=== PATIENT | female | born 1990 | race Caucasian/White ===

== ENCOUNTER 2016-09-14 19:03 | Inpatient (IN) | payer OTHER ==
[~2016-09-14] VITALS: Ht 160 cm; Wt 98.8 kg
[~2016-09-14 19:03] MED LIST: ABILIFY10 MG PO; ABILIFY5 MG PO; ADDERALL XR 1515 MG PO; ADDERALL XR 2020 MG PO; ADDERALL XR 2525 MG PO; ADDERALL XR 3030 MG PO; ADDERALL20 MG PO; ALBUTEROL SULF8.5 GM IH; ALPRAZOLAM0.25 MG PO; AMOXICILLIN500 MG PO; ANTIVERT25 MG PO; ARIPIPRAZOLE10 MG PO; ATARAX,VISTARIL50 MG PO; ATIVAN0.5 MG PO; ATIVAN1 MG PO; AZITHROMYCIN250 MG PD; BACTRIM,SEPT1 TABLET PO; BENADRYL25 MG PO; BENADRYL50 MG PO; BIOTIN5 MG PO; CIPRO500 MG PO; CLONAZEPAM0.5 MG PO; DOXYCYCLINE HY100 MG PO; DULOXETINE HCL30 MG PO; Dilaudid PO; EFFEXOR XR150 MG PO; EFFEXOR XR75 MG PO; EFFEXOR50 MG PO; ENDOCET 5-3251 EACH PO; EXCEDRIN EXTRA1 EACH PO; FIORICET,ESG1 TABLET PO; FLAGYL500 MG PO; FLONASE16 G1 BOTH NARES; FLUOXETINE HCL20 MG PO; FLUOXETINE HCL40 MG PO; GUANFACINE HCL1 MG PO; HYDROCODON-ACE1 EAC7 PO; HYDROCODON-ACE1 EAC8 PO; IBUPROFEN600 MG PO; IBUPROFEN800 MG PO; IRON325 M1 PO; IRON325 MG PO; KEFLEX500 MG PO; KLONOPIN0.5 M1 PO; LATUDA60 MG PO; LEVO-T112 MCG PO; LEVOTHROID25 MCG PO; LEVOTHYROXINE100 MCG PO; LEVOTHYROXINE125 MCG PO; LEVOTHYROXINE50 MCG PO; LEVOXYL100 MCG PO; LEVOXYL112 MCG PO; LEXAPRO10 MG PO; LODINE300 MG PO; LORAZEPAM0.5 MG PO; MEDICATI TP; MELATONIN5 M1 PO; MOTRIN800 MG PO; MUCUS RELIEF600 M1 PO; NAPROSYN500 MG PO; NASALCROM NASAL13 ML BOTH NARES; NORCO 5/3251 TABLET PO; PEPCID20 MG PO; PHENERGAN-CODE120 ML PO; PREDNISONE10 M1 PO; PREDNISONE20 MG PO; PREDNISONE50 MG PO; PRENATAL TABLE1 EAC3 PO; PRENATAL1 EACH PO; PROVENTIL,2.5 MG/3 M IH; PROZAC20 MG PO; PROZAC40 MG PO; PYRIDIUM100 MG PO; ROBITUSSIN DM118 ML PO; RYBIX ODT50 MG PO; SUDAFED 12-HOU120 MG PO; SYNTHROID112 MCG PO; SYNTHROID50 MCG PO; TEGRETOL-XR,CA100 MG PO; TESSALON PERLE100 MG PO; TRAMADOL HCL50 MG; TRIPLE ANTIB28.35 GM TP; TUMS500 MG PO; TYLENOL REGULA325 MG PO; TYLENOL WITH C1 EACH PO; VENLAFAXINE HC150 M1; VENLAFAXINE HCL75 M3 PO; ZANTAC150 MG PO; ZANTAC75 M1 PO; ZOFRAN ODT4 MG PO; ZOFRAN4 MG PO; ZYRTEC10 M2 PO
[2016-09-14 19:28] VITALS: BP 128/75
[2016-09-14] MEDS ORDERED: GLYBURIDE1.25 MG PO (20:13)
[2016-09-14 20:21] VITALS: BP 125/63
[2016-09-14] MEDS ORDERED: MOTRIN800 MG PO (20:32)
[2016-09-14] MEDS ORDERED: PERCOCET 5/31 TABLET PO (20:32)
[2016-09-14 20:33] LABS: HEMATOCRIT 33.1 % (36.0-46.0); MCH 30.7 PG (29.0-34.0); MCHC 33.2 G/DL (30.0-36.0); MCV 92.5 FL (83-99); MEAN PLAT.VOLUME 9.3 uM^3 (9.5-12.4); PLATELET COUNT 207 K/uL (156-360); RBC DIS.WIDTH-CV 17.5 % (11.8-14.6); RBC DIS.WIDTH-SD 59.5 % (39-53); RED BLOOD COUNT 3.58 M/uL (3.80-5.20); WHITE BLOOD COUNT 8.9 K/uL (4.1-10.2)
[2016-09-14 20:37] LABS: EOSINOPHIL (%) 1.6 % (0-5); EOSINOPHIL COUNT 0.1 K/uL (0-0.3); IMMATURE GRANULOCYTE COUNT 0.1 K/uL; LYMPHOCYTE COUNT 2.2 K/uL (1.0-2.8); MONOCYTE (%) 6.8 % (3-12); MONOCYTE COUNT 0.6 K/uL (0-0.8); NEUTROPHIL (%) 65.5 % (45-76); NEUTROPHIL COUNT 5.8 K/uL (1.8-6.4)
[2016-09-14 21:06] LABS: POINT-OF-CARE METER ID UU13113692
[2016-09-14 23:44] VITALS: BP 139/74
[2016-09-15] VITALS (8 sets, daily range): BP systolic 97–131; BP diastolic 53–68
[2016-09-15 08:19] LABS: EOSINOPHIL (%) 0.2 % (0-5); HEMATOCRIT 29.4 % (36.0-46.0); IMMATURE GRANULOCYTE (%) 0.6 % (0.0-0.7); IMMATURE GRANULOCYTE COUNT 0.1 K/uL; LYMPHOCYTE COUNT 2.2 K/uL (1.0-2.8); MCH 29.9 PG (29.0-34.0); MCV 90.7 FL (83-99); MEAN PLAT.VOLUME 9.3 uM^3 (9.5-12.4); MONOCYTE (%) 7.1 % (3-12); MONOCYTE COUNT 0.9 K/uL (0-0.8); NEUTROPHIL (%) 74.8 % (45-76); NEUTROPHIL COUNT 9.5 K/uL (1.8-6.4); PLATELET COUNT 225 K/uL (156-360); RBC DIS.WIDTH-CV 17.3 % (11.8-14.6); RBC DIS.WIDTH-SD 57.7 % (39-53); RED BLOOD COUNT 3.24 M/uL (3.80-5.20)
[2016-09-15 08:22] LABS: WHITE BLOOD COUNT 12.7 K/uL (4.1-10.2)
[2016-09-16 03:03] VITALS: BP 118/62
[2016-09-16 08:06] VITALS: BP 125/59
[2016-09-16 11:12] VITALS: BP 117/56
[2016-09-16 15:02] VITALS: BP 119/64
[2016-09-16 23:03] VITALS: BP 129/63
[2016-09-17 07:10] VITALS: BP 132/72
[2016-09-17 22:28] VITALS: BP 135/78
[2016-09-18 07:30] VITALS: BP 135/77
[2016-09-18] MEDS ORDERED: IBUPROFEN800 MG PO (09:13)
[2016-09-18] MEDS ORDERED: ENDOCET 5-3251 EACH PO (09:13)
== END 2016-09-18 11:26 | disposition home or self-care (01) | DRG 766 ==
LOC: LDRP-OP 19:03 → 2WEST 19:04 → LDRP-OP 10-27 22:13
PROVIDERS: Obstetrics & Gynecology
DX: O42.02 Full-term premature rupture of membranes, onset of labor within 24 hours of rupture (principal); Z3A.38 38 weeks gestation of pregnancy; Z37.0 Single live birth; E66.9 Obesity, unspecified; E03.9 Hypothyroidism, unspecified; D64.9 Anemia, unspecified; O99.02 Anemia complicating childbirth; O99.214 Obesity complicating childbirth; O99.284 Endocrine, nutritional and metabolic diseases complicating childbirth; F41.9 Anxiety disorder, unspecified; O99.344 Other mental disorders complicating childbirth; Z30.2 Encounter for sterilization; O24.425 Gestational diabetes mellitus in childbirth, controlled by oral hypoglycemic drugs; Z68.31 Body mass index [BMI] 31.0-31.9, adult
CPT/HCPCS: 59025; 82948; 85025; 86850; 86900; 86901; 86920; 88302; G0378; J1100; J1170; J1580; J1885; J2175; J2270; J2274; J2405; J3010; J7050; J7120

== ENCOUNTER 2016-10-19 19:13 | Inpatient (IN) | payer OTHER ==
[~2016-10-19] VITALS: Ht 160 cm; Wt 90.2 kg
[~2016-10-19 19:13] MED LIST changes: +GLYBURIDE1.25 MG PO; +PERCOCET 5/31 TABLET PO
[2016-10-19 19:49] LABS: HEMATOCRIT 34.4 % (36.0-46.0); MCH 29.3 PG (29.0-34.0); MCHC 33.1 G/DL (30.0-36.0); MCV 88.4 FL (83-99); MEAN PLAT.VOLUME 8.7 uM^3 (9.5-12.4); PLATELET COUNT 339 K/uL (156-360); RBC DIS.WIDTH-CV 14.8 % (11.8-14.6); RBC DIS.WIDTH-SD 46.6 % (39-53); RED BLOOD COUNT 3.89 M/uL (3.80-5.20); WHITE BLOOD COUNT 8.2 K/uL (4.1-10.2)
[2016-10-19 20:00] LABS: CHLORIDE 109 mEq/L (99-109); POTASSIUM 3.8 mEq/L (3.7-5.4); SODIUM 141 mEq/L (136-147)
[2016-10-19 20:02] LABS: GLUCOSE 98 mg/dL (70-99)
[2016-10-19 20:03] LABS: ANION GAP 9 MEQ/L (2-14)
[2016-10-19 20:05] LABS: SERUM ETHYL ALCOHOL < 10 mg/dL
[2016-10-19 20:06] LABS: GFR ESTIMATE (CALCULATED) > 59 mL/min/; UREA NITROGEN (BUN) 10 mg/dL (9-23)
[2016-10-19] MEDS ORDERED: CLONAZEPAM0.5 MG PO (20:06)
[2016-10-19 20:11] LABS: AMPHETAMINE NEGATIVE (500 ng/mL); BARBITURATES NEGATIVE (200 ng/mL); BENZODIAZEPINES NEGATIVE (150 ng/mL); COCAINE NEGATIVE (150 ng/mL); INTERNAL CONTROLS VALID? YES; METHADONE NEGATIVE (200 ng/mL); METHAMPHETAMINE NEGATIVE (500 ng/mL); OPIATES (MORPHINE) NEGATIVE (100 ng/mL); OXYCODONE NEGATIVE (100 ng/mL); PHENCYCLIDINE NEGATIVE (25 ng/mL); PROPOXYPHENE NEGATIVE (300 ng/mL); THC CANNABINOIDS NEGATIVE (50 ng/mL); TRICYCLIC ANTIDEPRESSANTS NEGATIVE (300 ng/mL)
[2016-10-19 20:15] LABS: QUANTITATIVE HCG < 4.0 MIU/ML
[2016-10-20 00:44] VITALS: BP 112/65
[2016-10-20 01:33] VITALS: BP 112/65
[2016-10-20 07:57] VITALS: BP 115/55
[2016-10-20 15:49] VITALS: BP 103/57
[2016-10-21 08:02] VITALS: BP 114/55
[2016-10-21 15:37] VITALS: BP 123/61
[2016-10-22 09:55] VITALS: BP 112/66
[2016-10-22 15:49] VITALS: BP 129/71
[2016-10-23 09:23] VITALS: BP 107/69
[2016-10-23] MEDS ORDERED: ARIPIPRAZOLE5 MG PO (09:51)
[2016-10-23] MEDS ORDERED: FLUOXETINE HCL20 MG PO (09:51)
== END 2016-10-23 10:39 | disposition home or self-care (01) | DRG 885 ==
LOC: EME 19:13 → EDOF 22:14 → 1WEST 22:14
DX: F33.41 Major depressive disorder, recurrent, in partial remission (principal); F60.3 Borderline personality disorder
CPT/HCPCS: 80048; 84443; 84702; 85027; 90839; 97150 GO; 97165 GO; 99281; 99285; G0480; Q0177

== ENCOUNTER 2017-03-30 00:03 | Emergency (ER) | payer OTHER ==
[~2017-03-30] VITALS: Ht 162.6 cm; Wt 94.0 kg
[~2017-03-30 00:03] MED LIST changes: +ARIPIPRAZOLE5 MG PO
[2017-03-30 00:48] LABS: MCHC 32.4 G/DL (30.0-36.0); MCV 89.4 FL (83-99); MEAN PLAT.VOLUME 8.8 uM^3 (9.5-12.4); PLATELET COUNT 366 K/uL (156-360); RBC DIS.WIDTH-CV 15.8 % (11.8-14.6); RBC DIS.WIDTH-SD 51.9 % (39-53); RED BLOOD COUNT 4.14 M/uL (3.80-5.20); WHITE BLOOD COUNT 9.8 K/uL (4.1-10.2)
[2017-03-30 01:01] LABS: CHLORIDE 103 mEq/L (99-109); POTASSIUM 3.9 mEq/L (3.7-5.4); SODIUM 139 mEq/L (136-147)
[2017-03-30 01:03] LABS: GLUCOSE 98 mg/dL (70-99)
[2017-03-30 01:04] LABS: ANION GAP 11 MEQ/L (2-14)
[2017-03-30 01:05] LABS: TOTAL BILIRUBIN 0.3 mg/dL (0.0-1.0)
[2017-03-30 01:07] LABS: ALKALINE PHOSPHATASE 83 IU/L (3-129); GFR ESTIMATE (CALCULATED) > 59 mL/min/
[2017-03-30 01:08] LABS: UREA NITROGEN (BUN) 18 mg/dL (9-23)
[2017-03-30 01:17] LABS: ADD MIUA? YES; BILIRUBIN NEGATIVE; BLOOD NEGATIVE; COLOR YELLOW ((YELLOW)); GLUCOSE (STRIP) NEGATIVE; KETONES NEGATIVE; LEUKOCYTES TRACE; NITRITE NEGATIVE; PROTEIN (STRIP) NEGATIVE; SPECIFIC GRAVITY 1.026 (1.000-1.030); UROBILINOGEN 0.2 MG/DL (0.2-1.0)
[2017-03-30 01:18] LABS: QUANTITATIVE HCG < 4.0 MIU/ML
[2017-03-30 01:49] LABS: BACTERIA RARE /HPF; CASTS NONE SEEN /LPF; CRYSTALS NONE SEEN; EPITHELIAL CELLS RARE /HPF; MUCUS 1+ /LPF; RED BLOOD CELLS 0-5 /HPF (0-5); UCUL ADDED? NO
[2017-03-30 02:13] VITALS: BP 112/77
== END 2017-03-30 02:14 | disposition home or self-care (01) ==
LOC: EME 00:03
DX: R10.11 Right upper quadrant pain (principal); R10.33 Periumbilical pain; F31.9 Bipolar disorder, unspecified; G43.909 Migraine, unspecified, not intractable, without status migrainosus; Z88.0 Allergy status to penicillin; F17.200 Nicotine dependence, unspecified, uncomplicated
CPT/HCPCS: 80053; 81003; 84702; 85027; 99281; 99283

== ENCOUNTER 2017-06-20 17:15 | Emergency (ER) | payer OTHER ==
[~2017-06-20] VITALS: Ht 160 cm; Wt 90.6 kg
[2017-06-20 18:27] LABS: MCH 29.9 PG (29.0-34.0); MCHC 32.9 G/DL (30.0-36.0); MCV 90.9 FL (83-99); MEAN PLAT.VOLUME 8.8 uM^3 (9.5-12.4); PLATELET COUNT 322 K/uL (156-360); RBC DIS.WIDTH-CV 12.5 % (11.8-14.6); RBC DIS.WIDTH-SD 41.6 % (39-53); RED BLOOD COUNT 4.51 M/uL (3.80-5.20); WHITE BLOOD COUNT 7.8 K/uL (4.1-10.2)
[2017-06-20 18:36] LABS: CHLORIDE 106 mEq/L (99-109); POTASSIUM 3.9 mEq/L (3.7-5.4); SODIUM 141 mEq/L (136-147)
[2017-06-20 18:37] LABS: GLUCOSE 81 mg/dL (70-99)
[2017-06-20 18:39] LABS: ANION GAP 12 MEQ/L (2-14)
[2017-06-20 18:40] LABS: SERUM ETHYL ALCOHOL < 10 mg/dL
[2017-06-20 18:41] LABS: GFR ESTIMATE (CALCULATED) > 59 mL/min/
[2017-06-20 18:42] LABS: UREA NITROGEN (BUN) 10 mg/dL (9-23)
[2017-06-20 18:52] LABS: QUANTITATIVE HCG < 4.0 MIU/ML
[2017-06-20 19:37] LABS: ADD MIUA? YES; BILIRUBIN NEGATIVE; BLOOD NEGATIVE; COLOR YELLOW ((YELLOW)); GLUCOSE (STRIP) NEGATIVE; KETONES 5; LEUKOCYTES MODERATE; NITRITE POSITIVE; PROTEIN (STRIP) NEGATIVE; SPECIFIC GRAVITY 1.025 (1.000-1.030)
[2017-06-20 19:54] LABS: ADD MEDTOX COMMENT Y; AMPHETAMINE PRESUMPTIVE POSITIVE (500 ng/mL); BARBITURATES NEGATIVE (200 ng/mL); BENZODIAZEPINES NEGATIVE (150 ng/mL); COCAINE NEGATIVE (150 ng/mL); INTERNAL CONTROLS VALID? YES; METHADONE NEGATIVE (200 ng/mL); METHAMPHETAMINE NEGATIVE (500 ng/mL); OPIATES (MORPHINE) NEGATIVE (100 ng/mL); OXYCODONE NEGATIVE (100 ng/mL); PHENCYCLIDINE NEGATIVE (25 ng/mL); PROPOXYPHENE NEGATIVE (300 ng/mL); THC CANNABINOIDS PRESUMPTIVE POSITIVE (50 ng/mL); TRICYCLIC ANTIDEPRESSANTS NEGATIVE (300 ng/mL)
[2017-06-20] MEDS ORDERED: MACROBID100 MG PO (21:29)
[2017-06-20 21:40] LABS: AMORPHOUS PHOSPHATE CRYSTALS 1+; BACTERIA 2+ /HPF; CASTS NONE SEEN /LPF; CRYSTALS PRESENT; EPITHELIAL CELLS 2+ /HPF; MUCUS 1+ /LPF; RED BLOOD CELLS 0-5 /HPF (0-5); UCUL ADDED? YES; WHITE BLOOD CELLS 0-5 /HPF (0-5)
[2017-06-20 21:46] VITALS: BP 129/83
== END 2017-06-20 21:47 | disposition home or self-care (01) ==
LOC: EME 17:15
DX: R42 Dizziness and giddiness (principal); N39.0 Urinary tract infection, site not specified; F32.9 Major depressive disorder, single episode, unspecified; E03.9 Hypothyroidism, unspecified; F43.10 Post-traumatic stress disorder, unspecified; F41.9 Anxiety disorder, unspecified; F60.3 Borderline personality disorder; F90.9 Attention-deficit hyperactivity disorder, unspecified type; F12.10 Cannabis abuse, uncomplicated; F15.10 Other stimulant abuse, uncomplicated; F17.200 Nicotine dependence, unspecified, uncomplicated; Z88.0 Allergy status to penicillin
CPT/HCPCS: 80048; 81003; 84702; 84999; 85027; 87077; 87086; 87186; 90832; 99281; 99285; G0480; J2405; J7030

== ENCOUNTER 2017-07-01 23:57 | Emergency (ER) | payer OTHER ==
[~2017-07-01] VITALS: Ht 160 cm; Wt 93.0 kg
[~2017-07-01 23:57] MED LIST changes: +MACROBID100 MG PO
[2017-07-02] MEDS ORDERED: KEFLEX500 MG PO (01:47)
[2017-07-02 01:55] VITALS: BP 127/71
== END 2017-07-02 01:59 | disposition home or self-care (01) ==
LOC: EME 23:57
PROC: 0HC1XZZ Extirpation of Matter from Face Skin, External Approach (ICD-10-PCS; principal; 2017-07-01)
DX: S01.442A Puncture wound with foreign body of left cheek and temporomandibular area, initial encounter (principal); W45.8XXA Other foreign body or object entering through skin, initial encounter; F17.200 Nicotine dependence, unspecified, uncomplicated
CPT/HCPCS: 99281; 99283

== ENCOUNTER → 2017-08-22 | Outpatient (CLI) | payer OTHER | END | disposition home or self-care (01) | LOC: CDC 11:00 | DX: Z79.899 Other long term (current) drug therapy (principal); I49.8 Other specified cardiac arrhythmias; F60.3 Borderline personality disorder; F90.9 Attention-deficit hyperactivity disorder, unspecified type; F43.10 Post-traumatic stress disorder, unspecified; F31.9 Bipolar disorder, unspecified | CPT/HCPCS: 93000 ==

== ENCOUNTER 2017-08-27 12:43 | Emergency (ER) | payer OTHER ==
[~2017-08-27] VITALS: Ht 160 cm; Wt 92.6 kg
[2017-08-27 13:43] LABS: HEMATOCRIT 40.8 % (36.0-46.0); MCH 30.5 PG (29.0-34.0); MCHC 33.3 G/DL (30.0-36.0); MCV 91.5 FL (83-99); MEAN PLAT.VOLUME 8.8 uM^3 (9.5-12.4); PLATELET COUNT 335 K/uL (156-360); RBC DIS.WIDTH-CV 13.4 % (11.8-14.6); RBC DIS.WIDTH-SD 44.9 % (39-53); RED BLOOD COUNT 4.46 M/uL (3.80-5.20); WHITE BLOOD COUNT 9.9 K/uL (4.1-10.2)
[2017-08-27 13:51] LABS: CHLORIDE 103 mEq/L (99-109); POTASSIUM 4.1 mEq/L (3.7-5.4); SODIUM 138 mEq/L (136-147)
[2017-08-27 13:53] LABS: GLUCOSE 95 mg/dL (70-99)
[2017-08-27 13:54] LABS: ANION GAP 11 MEQ/L (2-14)
[2017-08-27 13:56] LABS: GFR ESTIMATE (CALCULATED) > 59 mL/min/
[2017-08-27 13:57] LABS: UREA NITROGEN (BUN) 11 mg/dL (9-23)
[2017-08-27 14:04] LABS: ADD MIUA? YES; BILIRUBIN NEGATIVE; BLOOD NEGATIVE; COLOR YELLOW ((YELLOW)); GLUCOSE (STRIP) NEGATIVE; KETONES NEGATIVE; LEUKOCYTES NEGATIVE; NITRITE NEGATIVE; PROTEIN (STRIP) NEGATIVE; SPECIFIC GRAVITY 1.018 (1.000-1.030); UROBILINOGEN 0.2 MG/DL (0.2-1.0)
[2017-08-27 14:08] LABS: QUANTITATIVE HCG < 4.0 MIU/ML
[2017-08-27 14:09] LABS: BACTERIA NONE SEEN /HPF; EPITHELIAL CELLS 1+ /HPF; MUCUS TRACE /LPF; RED BLOOD CELLS 0-5 /HPF (0-5); UCUL ADDED? NO; WHITE BLOOD CELLS 0-5 /HPF (0-5)
[2017-08-27 15:21] VITALS: BP 132/79
== END 2017-08-27 15:22 | disposition home or self-care (01) ==
LOC: EME 12:43
PROVIDERS: Emergency Medicine
DX: R53.1 Weakness (principal); E86.0 Dehydration; E03.9 Hypothyroidism, unspecified; M41.9 Scoliosis, unspecified; F90.9 Attention-deficit hyperactivity disorder, unspecified type; F60.3 Borderline personality disorder; F17.200 Nicotine dependence, unspecified, uncomplicated; F43.10 Post-traumatic stress disorder, unspecified; F41.9 Anxiety disorder, unspecified; Z88.0 Allergy status to penicillin; Z88.1 Allergy status to other antibiotic agents; Z88.8 Allergy status to other drugs, medicaments and biological substances
CPT/HCPCS: 80048; 81003; 84439; 84443; 84702; 85027; 93005; 99281; 99285; J7030

== ENCOUNTER 2017-09-08 14:07 | Emergency (ER) | payer OTHER ==
[~2017-09-08] VITALS: Ht 160 cm; Wt 89.7 kg
[2017-09-08 16:51] LABS: HEMATOCRIT 40.3 % (36.0-46.0); MCH 30.5 PG (29.0-34.0); MCHC 33.5 G/DL (30.0-36.0); MEAN PLAT.VOLUME 8.7 uM^3 (9.5-12.4); PLATELET COUNT 339 K/uL (156-360); RBC DIS.WIDTH-CV 13.2 % (11.8-14.6); RBC DIS.WIDTH-SD 43.8 % (39-53); RED BLOOD COUNT 4.43 M/uL (3.80-5.20)
[2017-09-08 17:07] LABS: ANION GAP 8 MEQ/L (2-14); CHLORIDE 102 MEQ/L (99-109); POTASSIUM 3.9 MEQ/L (3.7-5.4); SAMPLE HEMOLYSIS CHECK 0; SAMPLE ICTERIC CHECK 0; SAMPLE LIPEMIA CHECK 0; SODIUM 136 MEQ/L (136-147)
[2017-09-08 17:12] LABS: GFR ESTIMATE (CALCULATED) > 59 mL/min/; GLUCOSE 120 mg/dL (70-99); UREA NITROGEN (BUN) 13 mg/dL (9-23)
[2017-09-08 17:41] LABS: QUANTITATIVE HCG < 4.0 MIU/ML
[2017-09-08 17:59] LABS: TROP-I INTERPRETATION NEGATIVE; TROPONIN-I < 0.01 ng/mL (0.0-0.30)
[2017-09-08] MEDS ORDERED: CLONAZEPAM0.5 MG PO (18:07)
[2017-09-08] MEDS ORDERED: ADDERALL XR 2020 MG PO (18:08)
[2017-09-08] MEDS ORDERED: VENLAFAXINE HCL75 M3 PO (18:08)
[2017-09-08 18:40] VITALS: BP 123/64
== END 2017-09-08 18:41 | disposition home or self-care (01) ==
LOC: EME 14:07
PROVIDERS: Nurse Practitioner Family
DX: R00.2 Palpitations (principal); R53.1 Weakness; E05.90 Thyrotoxicosis, unspecified without thyrotoxic crisis or storm; E03.9 Hypothyroidism, unspecified; F43.10 Post-traumatic stress disorder, unspecified; F90.9 Attention-deficit hyperactivity disorder, unspecified type; M41.9 Scoliosis, unspecified; Z88.0 Allergy status to penicillin; F17.200 Nicotine dependence, unspecified, uncomplicated; Z88.8 Allergy status to other drugs, medicaments and biological substances
CPT/HCPCS: 80048; 84443; 84484; 84702; 85027; 99281; 99284

== ENCOUNTER 2017-09-11 22:00 | Emergency (ER) | payer OTHER ==
[~2017-09-11] VITALS: Ht 162.6 cm; Wt 92.2 kg
[2017-09-12 00:51] LABS: HEMATOCRIT 37.2 % (36.0-46.0); HEMOGLOBIN 12.4 G/DL (11.9-15.5); MCH 30.5 PG (29.0-34.0); MCHC 33.3 G/DL (30.0-36.0); MCV 91.6 FL (83-99); PLATELET COUNT 318 K/uL (156-360); RBC DIS.WIDTH-CV 13.3 % (11.8-14.6); RBC DIS.WIDTH-SD 45.6 % (39-53); RED BLOOD COUNT 4.06 M/uL (3.80-5.20); WHITE BLOOD COUNT 10.6 K/uL (4.1-10.2)
[2017-09-12 00:55] LABS: APPEARANCE SL.HAZY ((CLEAR)); BILIRUBIN NEGATIVE; BLOOD NEGATIVE; COLOR YELLOW ((YELLOW)); GLUCOSE (STRIP) NEGATIVE; KETONES NEGATIVE; LEUKOCYTES SMALL; NITRITE NEGATIVE; PROTEIN (STRIP) NEGATIVE; SPECIFIC GRAVITY 1.026 (1.000-1.030); UROBILINOGEN 0.2 MG/DL (0.2-1.0)
[2017-09-12 01:00] LABS: ALBUMIN 3.8 g/dL (3.2-4.8); CHLORIDE 105 mEq/L (99-109); POTASSIUM 3.8 mEq/L (3.7-5.4); SODIUM 137 mEq/L (136-147)
[2017-09-12 01:03] LABS: GLUCOSE 88 mg/dL (70-99); TOTAL PROTEIN 7.2 g/dL (6.4-8.3)
[2017-09-12 01:05] LABS: TOTAL BILIRUBIN 0.5 mg/dL (0.0-1.0)
[2017-09-12 01:06] LABS: ALKALINE PHOSPHATASE 80 IU/L (3-129); CREATININE 0.7 mg/dL (0.6-1.3); GFR ESTIMATE (CALCULATED) > 59 mL/min/
[2017-09-12 01:07] LABS: UREA NITROGEN (BUN) 14 mg/dL (9-23)
[2017-09-12 01:08] LABS: AST (GOT) 16 IU/L (2-34)
[2017-09-12 01:09] LABS: ALT (GPT) 16 IU/L (3-49)
[2017-09-12 01:09] LABS: BACTERIA 2+ /HPF; EPITHELIAL CELLS 2+ /HPF; MUCUS 1+ /LPF; RED BLOOD CELLS 0-5 /HPF (0-5); UCUL ADDED? YES; WHITE BLOOD CELLS 15-20 /HPF (0-5)
[2017-09-12 01:15] LABS: QUANTITATIVE HCG < 4.0 MIU/ML
[2017-09-12] MEDS ORDERED: MACROBID100 MG PO (01:52)
[2017-09-12] MEDS ORDERED: MECLIZINE HCL25 MG PO (01:59)
[2017-09-12 02:01] VITALS: BP 130/77
== END 2017-09-12 02:06 | disposition home or self-care (01) ==
LOC: EME 22:00 → RME 22:00
PROVIDERS: Physician Assistant
DX: R20.2 Paresthesia of skin (principal); N39.0 Urinary tract infection, site not specified; R42 Dizziness and giddiness; E03.9 Hypothyroidism, unspecified; F41.9 Anxiety disorder, unspecified; F17.200 Nicotine dependence, unspecified, uncomplicated; M41.9 Scoliosis, unspecified; F43.10 Post-traumatic stress disorder, unspecified; F90.9 Attention-deficit hyperactivity disorder, unspecified type; F60.3 Borderline personality disorder; Z88.0 Allergy status to penicillin; Z88.1 Allergy status to other antibiotic agents
CPT/HCPCS: 70450; 80053; 81003; 84702; 85027; 87077; 87086; 87186; 99281; 99285

== ENCOUNTER 2017-10-02 23:42 | Observation (INO) | payer OTHER ==
[~2017-10-02] VITALS: Ht 160 cm; Wt 92.9 kg
[~2017-10-02 23:42] MED LIST changes: +CLONAZEPAM1 MG PO; -LEVO-T112 MCG PO; +LEVO-T88 MCG PO; +MECLIZINE HCL25 MG PO
[2017-10-03 00:47] LABS: BASOPHIL (%) 0.5 % (0-1); EOSINOPHIL (%) 2.6 % (0-5); EOSINOPHIL COUNT 0.2 K/uL (0-0.3); HEMATOCRIT 36.8 % (36.0-46.0); HEMOGLOBIN 12.3 G/DL (11.9-15.5); IMMATURE GRANULOCYTE (%) 0.3 % (0.0-0.7); LYMPHOCYTE (%) 12.6 % (15-42); LYMPHOCYTE COUNT 0.9 K/uL (1.0-2.8); MCH 30.8 PG (29.0-34.0); MCHC 33.4 G/DL (30.0-36.0); MCV 92.2 FL (83-99); MONOCYTE (%) 6.6 % (3-12); MONOCYTE COUNT 0.5 K/uL (0-0.8); NEUTROPHIL (%) 77.4 % (45-76); NEUTROPHIL COUNT 5.7 K/uL (1.8-6.4); PLATELET COUNT 260 K/uL (156-360); RBC DIS.WIDTH-CV 13.2 % (11.8-14.6); RBC DIS.WIDTH-SD 45.1 % (39-53); RED BLOOD COUNT 3.99 M/uL (3.80-5.20); WHITE BLOOD COUNT 7.3 K/uL (4.1-10.2)
[2017-10-03 01:00] LABS: CHLORIDE 103 mEq/L (99-109); POTASSIUM 3.9 mEq/L (3.7-5.4); SODIUM 136 mEq/L (136-147)
[2017-10-03 01:02] LABS: GLUCOSE 86 mg/dL (70-99); TOTAL PROTEIN 7.1 g/dL (6.4-8.3)
[2017-10-03 01:04] LABS: TOTAL BILIRUBIN 0.2 mg/dL (0.0-1.0)
[2017-10-03 01:05] LABS: SERUM ETHYL ALCOHOL < 10 mg/dL
[2017-10-03 01:05] LABS: APPEARANCE CLEAR ((CLEAR)); BILIRUBIN NEGATIVE; BLOOD NEGATIVE; COLOR YELLOW ((YELLOW)); GLUCOSE (STRIP) NEGATIVE; KETONES NEGATIVE; LEUKOCYTES TRACE; NITRITE NEGATIVE; PROTEIN (STRIP) NEGATIVE; SPECIFIC GRAVITY 1.023 (1.000-1.030); UROBILINOGEN 0.2 MG/DL (0.2-1.0)
[2017-10-03 01:06] LABS: ALKALINE PHOSPHATASE 86 IU/L (3-129); CREATININE 0.7 mg/dL (0.6-1.3); GFR ESTIMATE (CALCULATED) > 59 mL/min/
[2017-10-03 01:07] LABS: AST (GOT) 13 IU/L (2-34)
[2017-10-03 01:08] LABS: UREA NITROGEN (BUN) 9 mg/dL (9-23)
[2017-10-03 01:09] LABS: SALICYLATE < 5.0 MG/DL (15-30)
[2017-10-03 01:10] LABS: ACETAMINOPHEN (TYLENOL) < 10 mcg/mL (10-30); ALT (GPT) 18 IU/L (3-49)
[2017-10-03 01:16] LABS: AMPHETAMINE PRESUMPTIVE POSITIVE (500 ng/mL); BACTERIA NONE SEEN /HPF; BENZODIAZEPINES PRESUMPTIVE POSITIVE (150 ng/mL); COCAINE PRESUMPTIVE POSITIVE (150 ng/mL); EPITHELIAL CELLS RARE /HPF; METHADONE NEGATIVE (200 ng/mL); METHAMPHETAMINE NEGATIVE (500 ng/mL); MUCUS TRACE /LPF; OPIATES (MORPHINE) NEGATIVE (100 ng/mL); PHENCYCLIDINE NEGATIVE (25 ng/mL); RED BLOOD CELLS 0-5 /HPF (0-5); THC CANNABINOIDS PRESUMPTIVE POSITIVE (50 ng/mL); TRICYCLIC ANTIDEPRESSANTS NEGATIVE (300 ng/mL); UCUL ADDED? YES
[2017-10-03 01:17] LABS: BARBITURATES NEGATIVE (200 ng/mL); BUPRENORPHINE NEGATIVE (10 ng/mL); OXYCODONE PRESUMPTIVE POSITIVE (100 ng/mL); PROPOXYPHENE NEGATIVE (300 ng/mL)
[2017-10-03 05:32] LABS: BENZODIAZEPINES, URINE SCREEN POSITIVE (200 ng/mL)
[2017-10-03 08:22] LABS: THYROTROPIN (TSH) 0.32 MIU/L (0.4-5.5)
[2017-10-03] MEDS ORDERED: LATUDA40 MG PO (10:22)
[2017-10-03] MEDS ORDERED: CYPROHEPTADINE H4 MG PO (10:22)
[2017-10-03] MEDS ORDERED: ANTIVERT25 MG PO (10:27)
[2017-10-03 11:58] VITALS: BP 136/67
[2017-10-03 16:11] VITALS: BP 116/57
[2017-10-03 20:34] VITALS: BP 128/65
[2017-10-03 23:32] VITALS: BP 122/62
[2017-10-04 03:38] VITALS: BP 120/72
[2017-10-04 09:11] LABS: HEMATOCRIT 35.8 % (36.0-46.0); HEMOGLOBIN 11.8 G/DL (11.9-15.5); MCV 91.1 FL (83-99); PLATELET COUNT 243 K/uL (156-360); RBC DIS.WIDTH-CV 13.5 % (11.8-14.6); RBC DIS.WIDTH-SD 45.3 % (39-53); RED BLOOD COUNT 3.93 M/uL (3.80-5.20); WHITE BLOOD COUNT 6.3 K/uL (4.1-10.2)
[2017-10-04 09:37] LABS: CHLORIDE 103 MEQ/L (99-109); POTASSIUM 3.7 MEQ/L (3.7-5.4); SODIUM 135 MEQ/L (136-147)
[2017-10-04 09:43] LABS: CREATININE 0.6 MG/DL (0.6-1.3); GFR ESTIMATE (CALCULATED) > 59 mL/min/; GLUCOSE 105 mg/dL (70-99); UREA NITROGEN (BUN) 5 mg/dL (9-23)
[2017-10-04 12:17] VITALS: BP 108/60
[2017-10-04] MEDS ORDERED: OSELTAMIVIR PHO75 MG PO (13:02)
[2017-10-04] MEDS ORDERED: CEPHALEXIN500 MG PO (13:04)
[2017-10-04 14:49] VITALS: BP 121/63
== END 2017-10-04 19:30 | disposition home or self-care (01) ==
LOC: EME 23:42 → EDOF 10-03 05:29 → 5WEST 10-03 05:29 → EDOF 10-03 05:29 → ENRESERV 10-03 05:31 → 5WEST 10-03 11:45
PROVIDERS: Emergency Medicine; Hospitalist; Physician Assistant
DX: T40.2X2A Poisoning by other opioids, intentional self-harm, initial encounter (principal); T42.4X2A Poisoning by benzodiazepines, intentional self-harm, initial encounter; F60.3 Borderline personality disorder; F31.9 Bipolar disorder, unspecified; J11.1 Influenza due to unidentified influenza virus with other respiratory manifestations; R00.0 Tachycardia, unspecified; E03.9 Hypothyroidism, unspecified; R73.03 Prediabetes; F43.10 Post-traumatic stress disorder, unspecified; F90.9 Attention-deficit hyperactivity disorder, unspecified type; Z81.8 Family history of other mental and behavioral disorders; F17.210 Nicotine dependence, cigarettes, uncomplicated; F12.90 Cannabis use, unspecified, uncomplicated; Z88.0 Allergy status to penicillin; Z88.1 Allergy status to other antibiotic agents; Z88.8 Allergy status to other drugs, medicaments and biological substances
CPT/HCPCS: 71046; 80048; 80053; 81003; 83605; 84439; 84443; 84703; 84999; 85025; 85027; 87040; 87086; 87186; 87502; 87651 90; 90839; 93005; 99281; 99285; G0378; G0480; J0696; J1650; J7030

== ENCOUNTER 2017-10-22 13:16 | Emergency (ER) | payer OTHER ==
[~2017-10-22] VITALS: Ht 160 cm; Wt 92.4 kg
[~2017-10-22 13:16] MED LIST changes: +CEPHALEXIN500 MG PO; +CYPROHEPTADINE H4 MG PO; +LATUDA40 MG PO; +OSELTAMIVIR PHO75 MG PO
[2017-10-22 14:42] LABS: APPEARANCE SL.HAZY ((CLEAR)); BILIRUBIN NEGATIVE; BLOOD LARGE; COLOR YELLOW ((YELLOW)); GLUCOSE (STRIP) NEGATIVE; KETONES NEGATIVE; LEUKOCYTES NEGATIVE; NITRITE NEGATIVE; PH, URINE 6.5 (5-8); PROTEIN (STRIP) TRACE; SPECIFIC GRAVITY 1.015 (1.000-1.030); UROBILINOGEN 0.2 MG/DL (0.2-1.0)
[2017-10-22] MEDS ORDERED: FLEXERIL10 MG PO (15:41)
[2017-10-22] MEDS ORDERED: PREDNISONE20 MG PO (15:41)
[2017-10-22] MEDS ORDERED: MOTRIN800 MG PO (15:41)
[2017-10-22] MEDS ORDERED: LIDODERM 5% P1 PATCH TD (15:41)
[2017-10-22 15:43] LABS: BACTERIA 2+ /HPF; EPITHELIAL CELLS 2+ /HPF; MUCUS NONE SEEN /LPF; WHITE BLOOD CELLS NONE SEEN /HPF (0-5)
[2017-10-22 15:53] VITALS: BP 106/59
== END 2017-10-22 15:54 | disposition home or self-care (01) ==
LOC: EME 13:16
DX: M54.42 Lumbago with sciatica, left side (principal); M41.9 Scoliosis, unspecified; Z88.0 Allergy status to penicillin; Z88.1 Allergy status to other antibiotic agents; Z88.8 Allergy status to other drugs, medicaments and biological substances
CPT/HCPCS: 72100; 81003; 99281; 99284; J1885; J7512

== ENCOUNTER 2018-03-24 02:13 | Emergency (ER) | payer OTHER ==
[~2018-03-24] VITALS: Ht 162.6 cm; Wt 91.4 kg
[~2018-03-24 02:13] MED LIST changes: +FLEXERIL10 MG PO; +LIDODERM 5% P1 PATCH TD
[2018-03-24 03:14] LABS: HEMATOCRIT 37.2 % (36.0-46.0); HEMOGLOBIN 12.3 G/DL (11.9-15.5); MCH 30.4 PG (29.0-34.0); MCHC 33.1 G/DL (30.0-36.0); MCV 91.9 FL (83-99); PLATELET COUNT 345 K/uL (156-360); RBC DIS.WIDTH-CV 12.6 % (11.8-14.6); RBC DIS.WIDTH-SD 42.5 % (39-53); RED BLOOD COUNT 4.05 M/uL (3.80-5.20); WHITE BLOOD COUNT 13.6 K/uL (4.1-10.2)
[2018-03-24 03:33] LABS: QUANTITATIVE HCG < 4.0 MIU/ML
[2018-03-24 03:43] LABS: CHLORIDE 101 mEq/L (99-109); POTASSIUM 3.4 mEq/L (3.7-5.4); SODIUM 137 mEq/L (136-147)
[2018-03-24] MEDS ORDERED: ZOFRAN ODT4 MG PO (03:44)
[2018-03-24 03:45] LABS: GLUCOSE 85 mg/dL (70-99)
[2018-03-24 03:48] LABS: CREATININE 0.8 mg/dL (0.6-1.3); GFR ESTIMATE (CALCULATED) > 59 mL/min/
[2018-03-24 03:49] LABS: UREA NITROGEN (BUN) 9 mg/dL (9-23)
[2018-03-24 04:06] VITALS: BP 123/78
[2018-03-25] MEDS ORDERED: CARAFATE1 GM PO (19:29)
[2018-03-25] MEDS ORDERED: ZOFRAN ODT8 MG PO (19:29)
== END 2018-03-24 04:07 | disposition home or self-care (01) ==
LOC: EME 02:13
PROVIDERS: Physician Assistant
DX: E86.0 Dehydration (principal); R11.2 Nausea with vomiting, unspecified; E03.9 Hypothyroidism, unspecified; K21.9 Gastro-esophageal reflux disease without esophagitis; M41.9 Scoliosis, unspecified; F31.9 Bipolar disorder, unspecified; F41.9 Anxiety disorder, unspecified; F90.9 Attention-deficit hyperactivity disorder, unspecified type; F17.200 Nicotine dependence, unspecified, uncomplicated; Z87.442 Personal history of urinary calculi; Z88.0 Allergy status to penicillin; Z88.1 Allergy status to other antibiotic agents; Z88.8 Allergy status to other drugs, medicaments and biological substances
CPT/HCPCS: 80048; 84702; 85027; 99281; 99284; J2405; J7030

== ENCOUNTER 2018-03-25 15:56 | Emergency (ER) | payer OTHER ==
[~2018-03-25] VITALS: Ht 162.6 cm; Wt 90.7 kg
[2018-03-25 18:45] LABS: APPEARANCE CLEAR ((CLEAR)); BILIRUBIN NEGATIVE; BLOOD NEGATIVE; COLOR STRAW ((YELLOW)); GLUCOSE (STRIP) NEGATIVE; KETONES NEGATIVE; LEUKOCYTES TRACE; NITRITE NEGATIVE; PROTEIN (STRIP) NEGATIVE; SPECIFIC GRAVITY 1.011 (1.000-1.030); UROBILINOGEN 0.2 MG/DL (0.2-1.0)
[2018-03-25 18:47] LABS: HEMATOCRIT 36.5 % (36.0-46.0); HEMOGLOBIN 12.3 G/DL (11.9-15.5); MCH 30.9 PG (29.0-34.0); MCHC 33.7 G/DL (30.0-36.0); MCV 91.7 FL (83-99); PLATELET COUNT 332 K/uL (156-360); RBC DIS.WIDTH-CV 12.6 % (11.8-14.6); RED BLOOD COUNT 3.98 M/uL (3.80-5.20); WHITE BLOOD COUNT 11.6 K/uL (4.1-10.2)
[2018-03-25 19:06] LABS: ALBUMIN 4.3 G/DL (3.2-4.8); CHLORIDE 102 MEQ/L (99-109); POTASSIUM 4.1 MEQ/L (3.7-5.4); SODIUM 137 MEQ/L (136-147); TOTAL BILIRUBIN 0.4 MG/DL (0.0-1.0)
[2018-03-25 19:11] LABS: ALKALINE PHOSPHATASE 82 IU/L (3-129); ALT (GPT) 10 IU/L (3-49); AST (GOT) 13 IU/L (2-34); CREATININE 0.6 MG/DL (0.6-1.3); GFR ESTIMATE (CALCULATED) > 59 mL/min/; GLUCOSE 87 mg/dL (70-99); TOTAL PROTEIN 7.2 G/DL (6.4-8.3); UREA NITROGEN (BUN) 7 mg/dL (9-23)
[2018-03-25 19:15] LABS: QUANTITATIVE HCG < 4.0 MIU/ML
[2018-03-25 19:19] LABS: BACTERIA NONE SEEN /HPF; EPITHELIAL CELLS 1+ /HPF; MUCUS NONE SEEN /LPF; RED BLOOD CELLS TNTC /HPF (0-5)
[2018-03-25] MEDS ORDERED: ZOFRAN ODT8 MG PO (19:29)
[2018-03-25] MEDS ORDERED: CARAFATE1 GM PO (19:29)
[2018-03-25 19:41] VITALS: BP 119/67
== END 2018-03-25 19:42 | disposition home or self-care (01) ==
LOC: EME 15:56
PROVIDERS: Physician Assistant
DX: R11.2 Nausea with vomiting, unspecified (principal); K21.9 Gastro-esophageal reflux disease without esophagitis; E03.9 Hypothyroidism, unspecified; M41.9 Scoliosis, unspecified; F31.9 Bipolar disorder, unspecified; F90.9 Attention-deficit hyperactivity disorder, unspecified type; F60.3 Borderline personality disorder; F41.9 Anxiety disorder, unspecified; F17.200 Nicotine dependence, unspecified, uncomplicated; Z87.442 Personal history of urinary calculi; Z88.0 Allergy status to penicillin; Z88.1 Allergy status to other antibiotic agents; Z88.8 Allergy status to other drugs, medicaments and biological substances
CPT/HCPCS: 80053; 81003; 84702; 85027; 99281; 99284

== ENCOUNTER 2018-03-26 23:53 | Observation (INO) | payer OTHER ==
[~2018-03-26] VITALS: Ht 162.6 cm; Wt 92.1 kg
[~2018-03-26 23:53] MED LIST changes: +CARAFATE1 GM PO; +ZOFRAN ODT8 MG PO
[2018-03-27 00:25] LABS: HEMATOCRIT 35.3 % (36.0-46.0); HEMOGLOBIN 11.9 G/DL (11.9-15.5); MCH 31.1 PG (29.0-34.0); MCHC 33.7 G/DL (30.0-36.0); MCV 92.2 FL (83-99); PLATELET COUNT 311 K/uL (156-360); RBC DIS.WIDTH-CV 12.9 % (11.8-14.6); RBC DIS.WIDTH-SD 42.5 % (39-53); RED BLOOD COUNT 3.83 M/uL (3.80-5.20); WHITE BLOOD COUNT 11.3 K/uL (4.1-10.2)
[2018-03-27 00:37] LABS: CHLORIDE 105 mEq/L (99-109); POTASSIUM 3.8 mEq/L (3.7-5.4); SODIUM 139 mEq/L (136-147)
[2018-03-27 00:39] LABS: GLUCOSE 103 mg/dL (70-99); TOTAL PROTEIN 7.2 g/dL (6.4-8.3)
[2018-03-27 00:41] LABS: TOTAL BILIRUBIN 0.4 mg/dL (0.0-1.0)
[2018-03-27 00:43] LABS: ALKALINE PHOSPHATASE 86 IU/L (3-129); CREATININE 0.8 mg/dL (0.6-1.3); GFR ESTIMATE (CALCULATED) > 59 mL/min/
[2018-03-27 00:44] LABS: AST (GOT) 16 IU/L (2-34); UREA NITROGEN (BUN) 12 mg/dL (9-23)
[2018-03-27 00:46] LABS: ALT (GPT) 12 IU/L (3-49)
[2018-03-27 00:52] LABS: QUANTITATIVE HCG < 4.0 MIU/ML
[2018-03-27 01:08] LABS: LIPASE 50 U/L (1.0-51.0)
[2018-03-27 01:51] LABS: APPEARANCE CLEAR ((CLEAR)); BILIRUBIN NEGATIVE; BLOOD NEGATIVE; COLOR YELLOW ((YELLOW)); GLUCOSE (STRIP) NEGATIVE; KETONES NEGATIVE; LEUKOCYTES TRACE; NITRITE NEGATIVE; PROTEIN (STRIP) NEGATIVE; SPECIFIC GRAVITY 1.025 (1.000-1.030); UROBILINOGEN 0.2 MG/DL (0.2-1.0)
[2018-03-27 02:11] LABS: BACTERIA RARE /HPF; EPITHELIAL CELLS RARE /HPF; MUCUS TRACE /LPF; RED BLOOD CELLS 0-5 /HPF (0-5); UCUL ADDED? YES
[2018-03-27 03:46] LABS: AMPHETAMINE PRESUMPTIVE POSITIVE (500 ng/mL); BARBITURATES NEGATIVE (200 ng/mL); BENZODIAZEPINES NEGATIVE (150 ng/mL); COCAINE NEGATIVE (150 ng/mL); METHADONE NEGATIVE (200 ng/mL); METHAMPHETAMINE NEGATIVE (500 ng/mL); OPIATES (MORPHINE) NEGATIVE (100 ng/mL); OXYCODONE PRESUMPTIVE POSITIVE (100 ng/mL); PHENCYCLIDINE NEGATIVE (25 ng/mL); THC CANNABINOIDS NEGATIVE (50 ng/mL); TRICYCLIC ANTIDEPRESSANTS NEGATIVE (300 ng/mL)
[2018-03-27 03:47] LABS: BUPRENORPHINE NEGATIVE (10 ng/mL); PROPOXYPHENE NEGATIVE (300 ng/mL)
[2018-03-27] MEDS ORDERED: GEODON60 MG PO (04:03)
[2018-03-27] MEDS ORDERED: LAMICTAL25 MG PO (04:04)
[2018-03-27] MEDS ORDERED: VENLAFAXINE H37.5 M3 PO (04:05)
[2018-03-27 04:22] VITALS: BP 92/40
[2018-03-27 07:39] VITALS: BP 85/50
[2018-03-27 11:13] VITALS: BP 105/56
[2018-03-27 11:44] VITALS: BP 113/69
[2018-03-27 12:10] LABS: THYROTROPIN (TSH) 0.81 MIU/L (0.4-5.5)
[2018-03-27] MEDS ORDERED: EFFEXOR XR75 MG PO (13:26)
[2018-03-27] MEDS ORDERED: ADDERALL XR 2020 MG PO (13:27)
[2018-03-27] MEDS ORDERED: TUMS500 MG PO (13:29)
[2018-03-27] MEDS ORDERED: TYLENOL325 M2 PO (13:29)
[2018-03-27 15:17] VITALS: BP 118/68
[2018-03-27] MEDS ORDERED: BENTYL20 MG PO (17:40)
[2018-03-27] MEDS ORDERED: NICOTINE PATCH1 EAC1 TD (17:41)
[2018-03-27 19:30] VITALS: BP 111/70
[2018-03-28 00:45] VITALS: BP 92/53
[2018-03-28 03:49] VITALS: BP 95/54
[2018-03-28 07:05] VITALS: BP 97/52
== END 2018-03-28 09:15 | disposition home or self-care (01) ==
LOC: EME 23:53 → EDOF 03-27 03:13 → 4SOUTH 03-27 03:13 → ENRESERV 03-27 03:15 → 4SOUTH 03-27 04:07 → ENPENDDIS 03-28 08:49 → 4SOUTH 03-28 09:15
DX: R10.13 Epigastric pain (principal); M54.9 Dorsalgia, unspecified; R11.0 Nausea; E03.9 Hypothyroidism, unspecified; E11.9 Type 2 diabetes mellitus without complications; F43.10 Post-traumatic stress disorder, unspecified; F31.9 Bipolar disorder, unspecified; E66.01 Morbid (severe) obesity due to excess calories; Z68.34 Body mass index [BMI] 34.0-34.9, adult; F60.3 Borderline personality disorder; F90.9 Attention-deficit hyperactivity disorder, unspecified type; Z91.5 Personal history of self-harm; Z91.14 Patient's other noncompliance with medication regimen; Z91.19 Patient's noncompliance with other medical treatment and regimen; Z98.51 Tubal ligation status; M41.9 Scoliosis, unspecified; Z87.442 Personal history of urinary calculi; F17.200 Nicotine dependence, unspecified, uncomplicated; Z88.0 Allergy status to penicillin; Z88.8 Allergy status to other drugs, medicaments and biological substances
CPT/HCPCS: 74177; 76705; 80053; 81003; 83690; 84443; 84702; 84999; 85027; 87077; 87086; 87186; 99281; 99284; C9113; G0378; J2405; J3010

== ENCOUNTER 2018-04-07 21:39 | Emergency (ER) | payer SELFPAY ==
[~2018-04-07] VITALS: Ht 160 cm; Wt 88.9 kg
[~2018-04-07 21:39] MED LIST changes: +BENTYL20 MG PO; +GEODON60 MG PO; +LAMICTAL25 MG PO; +NICOTINE PATCH1 EAC1 TD; +TYLENOL325 M2 PO; +VENLAFAXINE H37.5 M3 PO
[2018-04-08] MEDS ORDERED: PREDNISONE20 MG PO (00:45)
[2018-04-08] MEDS ORDERED: MUCINEX D ER T1 EACH PO (00:45)
[2018-04-08] MEDS ORDERED: VENTOLIN HFA18 GM IH (00:45)
[2018-04-08] MEDS ORDERED: FLONASE16 G1 BOTH NARES (00:45)
[2018-04-08 00:54] VITALS: BP 122/77
== END 2018-04-08 00:55 | disposition home or self-care (01) ==
LOC: EME 21:39
DX: J06.9 Acute upper respiratory infection, unspecified (principal); J40 Bronchitis, not specified as acute or chronic; K21.9 Gastro-esophageal reflux disease without esophagitis; E03.9 Hypothyroidism, unspecified; M41.9 Scoliosis, unspecified; F31.9 Bipolar disorder, unspecified; F60.3 Borderline personality disorder; F90.9 Attention-deficit hyperactivity disorder, unspecified type; F41.9 Anxiety disorder, unspecified; F17.200 Nicotine dependence, unspecified, uncomplicated; Z87.442 Personal history of urinary calculi; Z88.0 Allergy status to penicillin; Z88.1 Allergy status to other antibiotic agents; Z88.8 Allergy status to other drugs, medicaments and biological substances
CPT/HCPCS: 94640; 99281; 99284; J7512

== ENCOUNTER 2018-05-14 17:20 | Emergency (ER) | payer SELFPAY ==
[~2018-05-14] VITALS: Ht 160 cm; Wt 86.6 kg
[~2018-05-14 17:20] MED LIST changes: +MUCINEX D ER T1 EACH PO; +VENTOLIN HFA18 GM IH
[2018-05-14 18:54] LABS: HEMATOCRIT 37.2 % (36.0-46.0); HEMOGLOBIN 12.7 G/DL (11.9-15.5); MCH 31.1 PG (29.0-34.0); MCHC 34.1 G/DL (30.0-36.0); PLATELET COUNT 315 K/uL (156-360); RBC DIS.WIDTH-CV 12.9 % (11.8-14.6); RBC DIS.WIDTH-SD 42.5 % (39-53); RED BLOOD COUNT 4.09 M/uL (3.80-5.20); WHITE BLOOD COUNT 11.7 K/uL (4.1-10.2)
[2018-05-14 19:03] LABS: AMPHETAMINE PRESUMPTIVE POSITIVE (500 ng/mL); BARBITURATES NEGATIVE (200 ng/mL); BENZODIAZEPINES NEGATIVE (150 ng/mL); BUPRENORPHINE NEGATIVE (10 ng/mL); COCAINE NEGATIVE (150 ng/mL); METHADONE NEGATIVE (200 ng/mL); METHAMPHETAMINE NEGATIVE (500 ng/mL); OPIATES (MORPHINE) NEGATIVE (100 ng/mL); OXYCODONE NEGATIVE (100 ng/mL); PHENCYCLIDINE NEGATIVE (25 ng/mL); PROPOXYPHENE NEGATIVE (300 ng/mL); THC CANNABINOIDS PRESUMPTIVE POSITIVE (50 ng/mL); TRICYCLIC ANTIDEPRESSANTS NEGATIVE (300 ng/mL)
[2018-05-14 19:22] LABS: CHLORIDE 103 mEq/L (99-109); POTASSIUM 3.7 mEq/L (3.7-5.4); SODIUM 139 mEq/L (136-147)
[2018-05-14 19:23] LABS: ALBUMIN 4.3 g/dL (3.2-4.8); MAGNESIUM 2.3 mg/dL (1.3-2.7)
[2018-05-14 19:25] LABS: GLUCOSE 84 mg/dL (70-99); TOTAL PROTEIN 7.5 g/dL (6.4-8.3)
[2018-05-14 19:27] LABS: TOTAL BILIRUBIN 0.4 mg/dL (0.0-1.0)
[2018-05-14 19:28] LABS: SERUM ETHYL ALCOHOL < 10 mg/dL
[2018-05-14 19:29] LABS: ALKALINE PHOSPHATASE 86 IU/L (3-129); CREATININE 0.8 mg/dL (0.6-1.3); GFR ESTIMATE (CALCULATED) > 59 mL/min/
[2018-05-14 19:30] LABS: UREA NITROGEN (BUN) 7 mg/dL (9-23)
[2018-05-14 19:31] LABS: AST (GOT) 12 IU/L (2-34)
[2018-05-14 19:32] LABS: ALT (GPT) 14 IU/L (3-49)
[2018-05-14 22:41] VITALS: BP 135/77
== END 2018-05-14 22:41 | disposition home or self-care (01) ==
LOC: EME 17:20
PROVIDERS: Emergency Medicine
DX: F32.3 Major depressive disorder, single episode, severe with psychotic features (principal); S80.812A Abrasion, left lower leg, initial encounter; S90.512A Abrasion, left ankle, initial encounter; S50.812A Abrasion of left forearm, initial encounter; F19.90 Other psychoactive substance use, unspecified, uncomplicated; X78.9XXA Intentional self-harm by unspecified sharp object, initial encounter; F60.3 Borderline personality disorder; R51 Headache; E03.9 Hypothyroidism, unspecified; F17.200 Nicotine dependence, unspecified, uncomplicated
CPT/HCPCS: 80053; 83735; 84999; 85027; 90839; 99281; 99285; G0480